=== PATIENT | male | born 1955 | race Caucasian/White ===

== ENCOUNTER → 2020-12-01 08:18 | Outpatient (CLI) | payer MEDICARE, SELFPAY ==
[2020-12-01] MEDS: COVID-19 VACC #1, MRNA(MOD) 100 MCG/0.5 ML VIAL IM (08:21)
== END ==
PROVIDERS: Visit Provider Internal Medicine
DX: Z23 Encounter for immunization (principal)
CPT/HCPCS: 0011A; 91301

== ENCOUNTER → 2020-12-29 07:53 | Outpatient (CLI) | payer MEDICARE, SELFPAY ==
[2020-12-29] MEDS: COVID-19 VACC #2, MRNA(MOD) 100 MCG/0.5 ML VIAL IM (07:57)
== END ==
PROVIDERS: Visit Provider Internal Medicine
DX: Z23 Encounter for immunization (principal)
CPT/HCPCS: 0012A; 91301

== ENCOUNTER → 2024-03-23 15:50 | Outpatient (CLI) | payer MEDICARE, SELFPAY ==
[2024-03-23 17:04] LABS: Add Manual Diff / Slide Review NO; Basophils Absolute Auto 100 /uL (0-100); Basophils Percent Auto 1.1 % (0-2); Eosinophils Absolute Auto 200 /uL (0-450); Eosinophils Percent Auto 3.4 % (2-4); Hemoglobin 15.5 g/dL (13.5-17.5); Lymphocytes Absolute Auto 1500 /uL (1100-4500); Lymphocytes Percent Auto 27.3 % (25-40); Mean Corpuscular HGB Conc 34.4 % (30-36); Mean Corpuscular Hemoglobin 32.3 PG (26-34); Mean Corpuscular Volume 93.7 fL (80-100); Monocytes Absolute Auto 400 /uL (0-900); Monocytes Percent Auto 7.1 % (3-14); Neutrophils Absolute Auto 3400 /uL (1500-7000); Neutrophils Percent Auto 61.1 % (50-75); Platelet Count 152 X10^3/uL (150-400); Red Cell Distribution Width 13.1 % (11.6-14.8); White Blood Cell Count 5.5 X10^3/uL (4.5-11.0)
[2024-03-23 18:06] LABS: Alanine Aminotransferase 14 IU/L (<50); Albumin 4.3 g/dL (3.5-5.0); Albumin Globulin Ratio 1.5 (1.0-2.8); Alkaline Phosphatase 106 U/L (38-126); Aspartate Aminotransferase 29 IU/L (17-59); BUN Creatinine Ratio 16.5 (6-22); Bilirubin Total 0.7 mg/dL (0.2-1.3); Blood Urea Nitrogen 14 mg/dL (9-20); Calcium 8.8 mg/dL (8.4-10.2); Carbon Dioxide 28 mmol/L (22-32); Chloride 105 mmol/L (98-107); Estimated Glomerular Filt Rate > 60 mL/min (>60); Globulin 2.8 g/dL (1.7-4.1); Glucose 91 mg/dL (80-110); HEMOLYSIS 22 (0-50); Sodium 140 mmol/L (137-145); Total Protein 7.1 g/dL (6.3-8.2)
[2024-03-23 19:24] LABS: Hep C Virus Ab w/Reflex Quant NEGATIVE s/c (NEGATIVE)
== END ==
PROVIDERS: PCP Family Medicine; Referring Provider Family Medicine; Visit Provider Family Medicine
DX: Z11.59 Encounter for screening for other viral diseases (principal); Z12.5 Encounter for screening for malignant neoplasm of prostate; Z00.00 Encounter for general adult medical examination without abnormal findings
CPT/HCPCS: 36415; 80053; 85025; 86803; G0103

== ENCOUNTER → 2024-04-20 10:12 | Outpatient (CLI) | payer MEDICARE, SELFPAY ==
[2024-04-21 07:10] LABS: PSA Free % 18.8 % (.); PSA, Total 5.7 ng/mL (0.0-4.0)
== END ==
PROVIDERS: PCP Family Medicine; Referring Provider Specialist; Visit Provider Specialist
DX: R97.20 Elevated prostate specific antigen [PSA] (principal)
CPT/HCPCS: 36415; 84153; 84154

== ENCOUNTER 2024-04-22 07:21 | Day surgery (SDC) | payer MEDICARE, SELFPAY ==
[2024-04-20 08:37] VITALS: BMI 23.3
--- NOTE | 2024-04-21 14:35 | PM.HP.1 ---
History of Present Illness History of Present Illness Date Patient Seen: 04/22/24 Time Patient Seen: 08:00 Chief complaint: Left Laparoscopic Inguinal Hernia Repair Narrative: 68 y.o man with a symptomatic left inguinal hernia here for elective repair. [facility] Medical History Encounter for subsequent annual wellness visit (AWV) in Medicare patient Surgical History History of hernia surgery H/O: vasectomy Social History marital status: unmarried,single details: Pt. lives with his sister. 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 Home Medications and Allergies Home Medications Medication Instructions Recorded Confirmed Type No Known Home Medications 03/19/24 04/22/24 History Allergies Allergy/AdvReac Type Severity Reaction Status Date / Time No Known Drug Allergies Allergy Verified 04/22/24 07:44 Exam Narrative Exam Narrative: General adult man alert oriented no acute distress Chest nonlabored respiration Abdomen left groin marked with my initials Extremities warm well perfused Assessment & Plan Assessment and plan (1) Left inguinal hernia: Status: Acute Assessment & Plan narrative: 68-year-old man with a symptomatic reducible left inguinal hernia possibly recurrent. Plan is for laparoscopic possible open left inguinal hernia repair. Overview of the operation again discussed. Operative risks including but not limited to infection, hemorrhage, damage to surrounding structures, recurrence, chronic pain reviewed. Questions have been answered he provides his consent to proceed.
[2024-04-22] VITALS (7 sets, daily range): BP systolic 125–147; BP diastolic 64–77; PULSE 57–98; RESP 12–17; TEMP 36.2–36.8; O2SAT 96–99; BMI 23.8
[2024-04-22] MEDS: LACTATED RINGERS 1,000 ML 42 ML IV (08:04)
[2024-04-22] MEDS: BUPIVACAINE 0.25% (PF) VIAL 30 ML INJ ×2 (09:18→09:36)
--- NOTE | 2024-04-22 10:04 | P.OP_ITS ---
Operative Date/Time/Diagnoses Date of procedure: 04/22/24 Time of procedure: 10:04 Pre-op diagnosis: Left inguinal hernia Post-op diagnosis: same Procedure & Clinicians Procedure: Laparoscopic repair of left inguinal hernia (TEP) Same procedure as scheduled: Yes Indications: 68-year-old male with a symptomatic reducible left inguinal hernia. Surgeon: Edy Alvarez Landscaping Crew Leader: Crispin Harden Anesthesia Type: General Operative Notes Findings: Indirect inguinal hernia and cord lipoma Specimen(s): none sent Estimated Blood Loss (mL): 10 Procedure in detail: Patient was brought to the operating room and placed supine on the table. Bilateral lower extremity compression devices were applied. General anesthesia was induced he was intubated with an endotracheal tube. Rodriguez catheter was sterilely placed. He was prepped and draped in sterile fashion arms were tucked and padded appropriately bilaterally. Time-out was performed. He received 2 g of Ancef prior to skin incision. Infraumbilical skin incision was made. Anterior sheath was visualized grasped elevated sharply incised the prep eritoneal space was accessed. Under direct visualization preperitoneal space was dissected using the balloon dissector. The dissecting trocar was then removed and replaced with standard fashion Roberts trocar. Pneumoperitoneum was established. The medial space of Retzius was bluntly dissected until Stanton's ligament was identified. There was no direct defect. Attention was then turned to the lateral aspect of the field which was bluntly dissected. Moderate size indirect hernia was identified and was dissected off of the cord structures. A cord lipoma was also skeletonized off. A Large Bard 3DMax mesh was placed directly over the myopectineal orifice. Pneumoperitoneum was slowly released under direct visualization. The anterior sheath was closed with interrupted Vicryl. Skin was closed with Monocryl followed by the application of Dermabond. Complications: none Post-operative Condition: stable Disposition: same day surgery
== END 2024-04-22 10:47 | disposition home or self-care (01) ==
PROVIDERS: PCP Family Medicine; Referring Provider Surgery; Visit Provider Surgery
PROC: 0YQ64ZZ Repair Left Inguinal Region, Percutaneous Endoscopic Approach (ICD-10-PCS; CPT 49650; principal; 2024-04-22 08:45)
DX: K40.90 Unilateral inguinal hernia, without obstruction or gangrene, not specified as recurrent (principal)
CPT/HCPCS: 49650; 82962; J1100; J1170; J1885; J2405; J2704